=== PATIENT | female | born 1970 | race Caucasian/White ===

== ENCOUNTER 2018-06-03 00:17 | Emergency (ER) | payer SELFPAY ==
--- NOTE | 2018-06-03 00:20 | PDOC ---
History of Present Illness - General Chief Complaint: Pain, Acute Stated Complaint: ABDOMINAL PAIN/N/V Time Seen by Provider: 06/03/18 00:20 - History of Present Illness Initial Comments: 06/03/18 00:44 This 48-year-old woman with a history of HTN,gestational diabetes, migraine headaches and renal colic (first diagnosed last month) presents with recurrent left flank/ left lower quadrant pain. Patient states that she was seen at [facility] on 05/08/18 with left sided abdominal pain. Preliminary Interpretation of the CT reportedly showed no renal stones or hydroureter/hydronephrosis. According to patient, the following day she was called by a physician from the [facility] who stated that revised interpretation of the CT revealed 5-6 mm left-sided ureteral stone. She was given Zofran, Flomax and Percocet prescriptions. She has followed up with her general medical doctor since then. Tonight, she had onset of severe pain in the left flank/left lower quadrant and persistent nausea/vomiting. Past History - Past Medical History Allergies/Adverse Reactions: Allergies Allergy/AdvReac Type Severity Reaction Status Date / Time No Known Allergies Allergy Unverified 06/03/18 00:23 Home Medications: Ambulatory Orders Amlodipine Besylate/Benazepril [Lotrel 5-10 mg Capsule] 1 each PO DAILY Metformin HCl [Glucophage] 500 mg PO BID 06/03/18 Ondansetron [Zofran Odt -] 4 mg SL TID PRN #10 od.tablet 06/03/18 Ondansetron [Zofran Odt -] 4 mg SL TID PRN #10 od.tablet 06/03/18 Oxycodone HCl/Acetaminophen [Percocet 5-325 mg Tablet] 1 tab PO Q6H PRN Tamsulosin HCl [Flomax] 0.4 mg PO DAILY 06/03/18 Topiramate [Topamax] 25 mg PO DAILY 06/03/18 Review of Systems - Review of Systems Able to Perform ROS?: Yes Comments:: 12 point review of systems is negative except for what is noted in the history of present illness *Physical Exam - Physical Exam Comments: GENERAL: Adult female, in moderate distress, secondary to nausea HEAD: Normal with no signs of trauma. EYES: PERRLA, EOMI, sclera anicteric, conjunctiva clear. ENT: Ears normal, nares patent, oropharynx clear without exudates. Dry mucous membranes. NECK: Normal range of motion, supple without lymphadenopathy, JVD, or masses. LUNGS: Breath sounds equal, clear to auscultation bilaterally. No wheezes, and no crackles. HEART:Regular rate and rhythm, normal S1 and S2 without murmur, rub or gallop. ABDOMEN:.normal bowel sounds No guarding,tenderness or rebound.No masses No distention. EXTREMITIES: Normal range of motion, no edema. No clubbing or cyanosis. No erythema, or tenderness. NEUROLOGICAL: Cranial nerves II through XII grossly intact. Normal speech. No focal neurological deficits. MUSCULOSKELETAL: Back non-tender to palpation, no CVA tenderness SKIN: Warm, Dry, normal turgor, no rashes or lesions noted. ED Treatment Course - LABORATORY CBC & Chemistry Diagram: 06/03/18 00:35 06/03/18 00:35 Medical Decision Making - Medical Decision Making This patient with a history of left-sided kidney stone diagnosed approximately 3 weeks ago presents with recurrent pain and nausea/vomiting. Exam as noted. IV line was established and CBC/chemistry profile sent along with urinalysis. Patient received a liter normal saline IV along with Zofran 4 mg IV. Toradol 30 mg IV was given for analgesia. Patient had significant relief of both nausea/vomiting and pain with IV medications. Renal stone protocol CT performed: 4 mm stone seen at the left UVJ with moderate hydroureter/hydronephrosis. No other stones or abnormality evident. Laboratory evaluation notable for borderline anemia (10/30) with microcytic/ hypochromic indices. Patient states that she has a history of iron deficiency anemia and occasionally takes iron supplements, especially when she is menstruating (patient states that she does not taken on a daily basis because of the changes she has with bowel movements when taking iron supplements). Also , creatinine is mildly elevated at 1.4. Patient states that this was seen in the past and her PMD is aware of it. Patient had some recurrence of left lower quadrant pain and was given 4 mg of IV morphine. She had adequate analgesia from the morphine but developed nausea and was given an additional 4 mg of Zofran IV. Patient continued to be comfortable with no further pain/nausea and she was discharged with follow-up with her PMD and with urology if she had persistent pain (patient had been given a referral to a urologist by her PMD ; patient also given a referral information for who was travel information center supervisor for urology here. The patient has Percocet 5/325 at home, previously prescribed for her renal colic. She should use this as needed for severe pain. Prescription for Zofran ODT 4 mg up to 3 times a day (#10) sent to her pharmacy. She should return to the ER if she has persistent severe pain or nausea/vomiting *DC/Admit/Observation/Transfer Diagnosis at time of Disposition: Renal colic on left side - Discharge Dispostion Disposition: HOME Condition at time of disposition: Stable - Prescriptions Prescriptions: Ondansetron [Zofran Odt -] 4 mg SL TID PRN #10 od.tablet PRN Reason: Nausea Ondansetron [Zofran Odt -] 4 mg SL TID PRN #10 od.tablet PRN Reason: Nausea - Referrals Referrals: Michel Kidd MD [Staff Physician] - - Patient Instructions Printed Discharge Instructions: Kidney Stones -- Adult Additional Instructions: Continue to drink plenty of water Acetaminophen/ibuprofen as needed for [id number] pain Percocet 5/325 as needed for severe pain Zofran ODT 4 mg up to 3 times a day as needed for nausea Follow-up with your general medical doctor within 5 days Consider urology follow-up (either as per your doctor or Dr. Watts) if flank or lower abdominal pain is persistent Return to ER if you have severe vomiting or pain - Post Discharge Activity
[2018-06-03 00:31] VITALS: BP 154/78; PULSE 66; TEMP 98.5; BMI 27.1
[2018-06-03] MEDS ORDERED: SODIUM CHLORIDE 1,000 ML IV STA (00:31)
[2018-06-03] MEDS ORDERED: ONDANSETRON 4 MG/2 ML VIAL IVPUSH ONE ×2 (00:31→02:37)
[2018-06-03] MEDS ORDERED: KETOROLAC TROMETHAMINE 30 MG/1 ML VIAL IVPUSH ONE (00:31)
[2018-06-03] MEDS ORDERED: KETOROLAC TROMETHAMINE 30 MG/1 ML VIAL ONE (00:39)
[2018-06-03] MEDS ORDERED: ONDANSETRON 4 MG/2 ML VIAL ONE ×2 (00:40→02:38)
[2018-06-03 01:32] LABS: BASO % 0.3 % (0-2.0); EOS % 1.1 % (0-4.5); HEMATOCRIT 31.3 % (32.4-45.2); LYMPH % 7.4 % (8-40); MCH 22.1 pg (25.7-33.7); MCHC 31.8 g/dl (32.0-36.0); MEAN CELL VOLUME 69.5 fl (80-96); MEAN PLT VOLUME 8.9 fl (7.5-11.1); MONO % 5.8 % (3.8-10.2); NEUT % 85.4 % (42.8-82.8); PLATELET COUNT 331 K/MM3 (134-434); RBC 4.51 M/mm3 (3.60-5.2); RDW 17.7 % (11.6-15.6); WHITE BLOOD COUNT 11.8 K/mm3 (4.0-10.0)
[2018-06-03] MEDS ORDERED: morphine CARPU-JECT 4 MG/1 ML DISP.SYRIN IVPUSH ONE (01:58)
[2018-06-03] MEDS ORDERED: morphine SULFATE 4 MG/ML VIAL ONE (02:01)
[2018-06-03 02:02] LABS: ALBUMIN 3.9 g/dl (3.4-5.0); ALK PHOS 61 U/L (45-117); ANION GAP 9 MMOL/L (8-16); BILIRUBIN,TOTAL 0.3 mg/dL (0.2-1); BLOOD UREA NITROGEN 26 mg/dL (7-18); CALCIUM 8.4 mg/dL (8.5-10.1); CHLORIDE 104 mmol/L (98-107); CO2 24 mmol/L (21-32); CREATININE 1.4 mg/dL (0.55-1.3); GLUCOSE,RANDOM 132 mg/dL (74-106); POTASSIUM 3.6 mmol/L (3.5-5.1); SGOT/AST 19 U/L (15-37); SGPT/ALT 24 U/L (13-61); SODIUM 137 mmol/L (136-145); TOT PROT 7.6 g/dl (6.4-8.2)
[2018-06-03 02:08] LABS: URINE APPEARANCE CLEAR; URINE BILIRUBIN NEGATIVE (<2.0 mg/dL); URINE COLOR STRAW; URINE GLUCOSE (UA) NEGATIVE (NEGATIVE); URINE KETONE TRACE (NEGATIVE); URINE LEUK ESTERASE NEGATIVE (NEGATIVE); URINE NITRITE NEGATIVE (NEGATIVE); URINE PROTEIN NEGATIVE (NEGATIVE); URINE UROBILINOGEN NEGATIVE mg/dL (0.2-1.0)
[2018-06-03 02:20] LABS: EPI CELLS RARE /HPF (FEW)
== END 2018-06-03 03:05 | disposition home or self-care (01) ==
LOC: FER 00:17
PROC: 3E033NZ Introduction of Analgesics, Hypnotics, Sedatives into Peripheral Vein, Percutaneous Approach (ICD-10-PCS; principal; 2018-06-03)
PROC: 3E033GC Introduction of Other Therapeutic Substance into Peripheral Vein, Percutaneous Approach (ICD-10-PCS; 2018-06-03)
PROC: 3E0337Z Introduction of Electrolytic and Water Balance Substance into Peripheral Vein, Percutaneous Approach (ICD-10-PCS; 2018-06-03)
PROC: 3E0333Z Introduction of Anti-inflammatory into Peripheral Vein, Percutaneous Approach (ICD-10-PCS; 2018-06-03)
DX: N23 Unspecified renal colic (principal); I10 Essential (primary) hypertension
CPT/HCPCS: 36415; 74176; 80053; 81003; 81015; 84703; 85025; 99282-25; J7030